=== PATIENT | male | born 1985 | race Caucasian/White ===

== ENCOUNTER 2023-06-27 13:26 | Outpatient (CLI) | payer BC ==
--- NOTE | 2023-06-29 19:16 | MRI Report ---
PROCEDURE: CERVICAL SPINE WO INDICATIONS: NECK PAIN TECHNIQUE: Noncontrast sagittal T1 spin echo and T2 fast spin echo, sagittal STIR, foraminal oblique sagittal T2 fast spin echo, and axial gradient echo or T2 fast spin echo through the cervical spine. COMPARISON: None. FINDINGS: Image quality: Excellent. Alignment and Curvature: There is normal bony alignment. Bone Marrow: Marrow demonstrates normal overall signal. Spinal Cord: Visualized spinal cord has normal size and signal. No cerebellar tonsillar herniation. Paraspinous Soft Tissues: No paravertebral masses. Prevertebral soft tissues are normal in thicknes s. C2-C3: No canal stenosis or foraminal stenosis. C3-C4: Normal in appearance. C4-C5: Disc bulge. No canal stenosis or foraminal stenosis. C5-C6: Mild chronic disc height loss. Diffuse posterior disc bulge. Bilateral facet hypertrophy. No central canal stenosis. Right uncovertebral joint hypertrophy with mild to moderate right foraminal n arrowing. Left large disc osteophyte complex markedly narrowing the left lateral recess with associat ed foraminal disc protrusion resulting in severe foraminal narrowing and left foraminal C6 nerve root impingement secondary to disc protrusion. C6-C7: Left facet hypertrophy. No canal stenosis or foraminal stenosis. C7-T1: Normal in appearance. IMPRESSION: 1. Findings are most significant at C5-C6. There is bilateral facet hypertrophy. There is bilateral u ncovertebral joint hypertrophy. On the left, there is large disc osteophyte complex severely narrowin g the left lateral recess and associated left foraminal disc protrusion resulting in severe left fora linda narrowing with left foraminal C6. 2. No canal stenosis or significant foraminal stenosis at other levels. Reviewed by: Benny Campbell MD on 06/29/2023 7:15 PM PST Approved by: Benny Campbell MD on 06/29/2023 7:15 PM PST Station ID: [id number]
== END 2023-06-27 13:27 | disposition home or self-care (01) ==
LOC: DI 13:26
PROVIDERS: ATTEND Chiropractor Neurology
DX: M50.122 Cervical disc disorder at C5-C6 level with radiculopathy (principal); M47.22 Other spondylosis with radiculopathy, cervical region; M48.02 Spinal stenosis, cervical region; M50.121 Cervical disc disorder at C4-C5 level with radiculopathy

== ENCOUNTER 2024-03-15 08:00 | Outpatient (CLI) | payer BC ==
[2024-03-15 20:08] LABS: FECAL OCCULT BLOOD (FIT) NEGATIVE (NEGATIVE)
== END 2024-03-15 23:59 | disposition home or self-care (01) ==
LOC: LAB.S 08:00
PROVIDERS: ATTEND Nurse Practitioner Gerontology
DX: R63.4 Abnormal weight loss (principal); R53.83 Other fatigue
CPT/HCPCS: 82274

== ENCOUNTER 2024-03-21 19:30 | Outpatient (CLI) | payer BC ==
[2024-03-21 19:55] LABS: BASOPHILS % (AUTO) 0.5 %; EOSINOPHILS # (AUTO) 0.2 10^3/uL (0.0-0.7); EOSINOPHILS % (AUTO) 3.3 %; HCT - HEMATOCRIT 37.2 % (42.0-52.0); HGB - HEMOGLOBIN 12.8 g/dL (14.0-18.0); LYMPHOCYTES % (AUTO) 33.4 %; MEAN CORPUSCULAR HEMOGLOBIN 31.6 pg (27.0-31.0); MEAN CORPUSCULAR HGB CONC 34.4 g/dL (32.0-36.0); MEAN CORPUSCULAR VOLUME 91.9 fL (80.0-94.0); MEAN PLATELET VOLUME 9.1 fL (7.4-11.4); MONOCYTES # (AUTO) 0.5 10^3/uL (0.0-1.0); MONOCYTES % (AUTO) 7.6 %; NEUTROPHILS # (AUTO) 3.3 10^3/uL (1.5-6.6); PLT - PLATELET COUNT 234 10^3/uL (130-450); RED BLOOD COUNT 4.05 10^6/uL (4.70-6.10); RED CELL DISTRIBUTION WIDTH 11.9 % (12.0-15.0); WHITE BLOOD COUNT 6.1 x10^3/uL (4.8-10.8)
[2024-03-21 20:07] LABS: % IRON SATURATION 25 % (20-50); ALBUMIN 4.8 g/dL (3.2-5.5); ALBUMIN/GLOBULIN RATIO 2.3 (1.0-2.2); ALKALINE PHOSPHATASE 92 IU/L (42-121); ALT ALANINE AMINOTRANSFERASE 23 IU/L (10-60); AST ASPARTATE AMINOTRANSFERASE 20 IU/L (10-42); BILIRUBIN,TOTAL 0.5 mg/dL (0.2-1.0); BUN - BLOOD UREA NITROGEN 16 mg/dL (6-20); CALCIUM 9.8 mg/dL (8.5-10.3); CARBON DIOXIDE - CO2 31 mmol/L (21-32); CHLORIDE 102 mmol/L (101-111); CHOL/HDL RATIO 2.9 (<5.0); CHOLESTEROL 196 mg/dL; CREATININE 0.9 mg/dL (0.6-1.3); CRP - C-REACTIVE PROTEIN < 0.5 mg/dL (<0.5); GFR - MDRD 93 (>89); GLUCOSE 109 mg/dL (74-104); HDL CHOLESTEROL 68 mg/dL; IRON 94 ug/dL (50-212); LDL CHOLESTEROL,CALCULATED 111 mg/dL; LDL/HDL RATIO 1.6 (<3.6); POTASSIUM 3.7 mmol/L (3.5-4.5); PREALBUMIN 33 mg/dL (17-34); SODIUM 139 mmol/L (135-145); TOTAL IRON BINDING CAPACITY 382 ug/dL (250-450); TOTAL PROTEIN 6.9 g/dL (6.4-8.9); TRANSFERRIN 273 mg/dL (203-362); TRIGLYCERIDES 85 mg/dL; VLDL CHOLESTEROL 17 mg/dL
[2024-03-21 20:22] LABS: THYROID STIMULATING HORMONE 1.07 uIU/mL (0.34-5.60)
[2024-03-21 20:29] LABS: FERRITIN 167.5 ng/mL (23.9-336.2)
== END 2024-03-21 19:31 | disposition home or self-care (01) ==
LOC: LAB 19:30
PROVIDERS: ATTEND Nurse Practitioner Gerontology
DX: R53.83 Other fatigue (principal); L29.9 Pruritus, unspecified
CPT/HCPCS: 36415; 80053; 80061; 82607; 82728; 83540; 83721; 84134; 84443; 84466; 85025; 85651; 86140